=== PATIENT | female | born 1985 | race African-American/Black ===

== ENCOUNTER → 2016-08-31 | Outpatient (CLI) | payer OTHER | LOC: LAB 17:48 | PROVIDERS: ATTEND Nurse Practitioner Acute Care | DX: N89.8 Other specified noninflammatory disorders of vagina (principal) | CPT/HCPCS: 87210 ==

== ENCOUNTER 2016-12-29 10:30 | Day surgery (SDC) | payer OTHER ==
[2016-12-29 11:11] LABS: HEMATOCRIT 36.7 % (36.0-47.0); HEMOGLOBIN 12.6 g/dL (12.0-15.5); HGB HCT DIFFERENCE 1.1; MEAN CORPUSCULAR HEMOGLOBIN 27.3 pg (27.0-33.4); MEAN CORPUSCULAR HGB CONC 34.3 g/dL (32.0-36.0); MEAN CORPUSCULAR VOLUME 80 fl (80-97); RED BLOOD COUNT 4.62 10^6/uL (3.72-5.28); RED CELL DISTRIBUTION WIDTH 13.4 % (11.5-14.0); WHITE BLOOD COUNT 10.3 10^3/uL (4.0-10.5)
[2016-12-29 11:24] LABS: APPEARANCE,URINE SLIGHTLY-CLOUDY; BILIRUBIN,URINE NEGATIVE (NEGATIVE); GLUCOSE, URINE NEGATIVE (NEGATIVE); KETONES,URINE NEGATIVE (NEGATIVE); LEUKOCYTE ESTERASE,URINE NEGATIVE (NEGATIVE); NITRITE,URINE NEGATIVE (NEGATIVE); PROTEIN,URINE NEGATIVE (NEGATIVE); UROBILINOGEN,URINE NEGATIVE mg/dL (<2.0)
[2016-12-29] MEDS ORDERED: FAMOTIDINE INJ/PF 20 MG/2 ML SDV IV ONE ×2 (11:57→12:30)
[2016-12-29] MEDS ORDERED: METOCLOPRAMIDE HCL INJ/PF 10 MG/2 ML SDV ONE ×2 (11:57→19:11)
[2016-12-29] MEDS ORDERED: PROPOFOL INJ 200 MG/20 ML VIAL IV ONE (12:16)
[2016-12-29] MEDS ORDERED: MIDAZOLAM 2 MG/2 ML INJ ONE (12:16)
[2016-12-29] MEDS ORDERED: FENTANYL CITRATE INJ/PF 250 MCG/5 ML AMPULE ONE (12:16)
[2016-12-29] MEDS ORDERED: ACETAMINOPHEN 100 ML IV ONE (12:17)
[2016-12-29] MEDS ORDERED: METOCLOPRAMIDE HCL INJ/PF 10 MG/2 ML SDV IV ONE (12:30)
[2016-12-29] MEDS ORDERED: RINGERS SOLUTION,LACTATED 1,000 ML IV ONE (12:30)
[2016-12-29] MEDS ORDERED: VASOPRESSIN INJ 20 UNIT/1 ML VIAL ONE (12:39)
[2016-12-29] MEDS ORDERED: OXYTOCIN 10 UNIT/ML VIAL ONE (12:41)
[2016-12-29] MEDS ORDERED: DIPHENHYDRAMINE HCL 50 MG/ML VIAL IV PRN (12:52)
[2016-12-29] MEDS ORDERED: MORPHINE SULFATE 10 MG/ML INJ IV PRN ×2 (12:52→14:15)
[2016-12-29] MEDS ORDERED: FENTANYL CITRATE INJ/PF 100 MCG/2 ML AMPUL IV PRN ×3 (12:52)
[2016-12-29] MEDS ORDERED: OXYCODONE-ACETAMINOPHEN 5-325 MG TABLET PO PRN ×4 (12:52→14:15)
[2016-12-29] MEDS ORDERED: PROMETHAZINE HCL INJ 25 MG/1 ML VIAL IV PRN ×2 (12:52)
[2016-12-29] MEDS ORDERED: MEPERIDINE HCL/PF INJ 25 MG/1 ML DISP.SYRIN IV PRN (12:52)
[2016-12-29] MEDS ORDERED: IBUPROFEN 800 MG TABLET ONE (13:47)
[2016-12-29] MEDS ORDERED: RINGERS SOLUTION,LACTATED 1,000 ML IV PRN (14:03)
[2016-12-29] MEDS ORDERED: IBUPROFEN 800 MG TABLET PO PRN (14:15)
[2016-12-29 14:59] VITALS: BP 119/75
[2016-12-29] MEDS ORDERED: SUCCINYLCHOLINE CHLORIDE INJ 200 MG/10 ML VIAL ONE (19:11)
[2016-12-29] MEDS ORDERED: DEXAMETHASONE SOD PHOSPHATE INJ 4 MG/1 ML VIAL ONE (19:11)
[2016-12-29] MEDS ORDERED: ONDANSETRON HCL INJ/PF 4 MG/2 ML SDV ONE (19:11)
[2016-12-29] MEDS ORDERED: GLYCOPYRROLATE INJ 0.4 MG/2 ML VIAL ONE (19:11)
--- NOTE | 2017-01-25 17:24 | OPERATIVE REPORT E ---
Operative Report NAME: BUSHRA ANGUIANO : 1985 AGE: 31Y DATE OF SURGERY: 12/29/2016 ROOM: PREOPERATIVE DIAGNOSIS: 7-week missed . POSTOPERATIVE DIAGNOSIS: 7-week missed . OPERATION: Suction dilatation and curettage. SURGEON: Dain Beaulieu D.O. HIGH SCHOOL HOME ECONOMICS TEACHER: None. ANESTHESIA: General endotracheal anesthesia. COMPLICATIONS: None. ESTIMATED BLOOD LOSS: 25 mL. PATHOLOGY: Products of conception. FINDINGS: 1. Uterine sounds to 7 cm. 2. Moderate amount of products of conception. PROCEDURE: The patient was taken to the operating room where she was placed on the operating room table. Her general endotracheal anesthesia was then administered. Once this was done, she was placed in a dorsal lithotomy position with Dylan stirrups. She was then prepped and draped in normal sterile fashion. Open-sided speculum was then placed inside the patient's vagina. The cervix was easily visualized and grasped on the anterior lip with a single-tooth tenaculum. The uterus was then sounded to 7 cm. The cervix was then dilated to a 28-Maltese using a Hegar dilator. Using #7 curved curette, a suction dilatation was performed until the entire products of conception were removed. Following this, there was excellent hemostasis noted. Following this, the procedure was terminated. All instruments were removed from the patient's vagina. Sponge, lap, and needle counts were correct x2. The patient tolerated the procedure well. The patient was taken to the recovery room in stable condition. DICTATING PHYSICIAN: Dain Beaulieu DO [id number] PHY#: [id number] ID: [id number] JOB#: [id number] ACCT: [id number] cc:Dain Beaulieu D.O. >
== END 2016-12-29 13:40 | disposition home or self-care (01) ==
LOC: OROUT 10:30
PROVIDERS: ATTEND Obstetrics & Gynecology
PROC: 10D17ZZ Extraction of Products of Conception, Retained, Via Natural or Artificial Opening (ICD-10-PCS; principal; 2016-12-29 12:30)
DX: O02.1 Missed abortion (principal); Z79.1 Long term (current) use of non-steroidal anti-inflammatories (NSAID)
CPT/HCPCS: 36415; 85027; 81025; 81001; 88305 ×2; 59820; J2250; J1100; J3010; J2765; J2590; J0330; J2405; J3490; J2704; S0028; J0131; 1965

== ENCOUNTER 2017-06-07 09:45 | Day surgery (SDC) | payer OTHER ==
[~2017-06-07 09:45] MED LIST: PROPOFOL INJ 200 MG/20 ML VIAL IV ONE
[2017-06-07] MEDS ORDERED: PROPOFOL INJ 200 MG/20 ML VIAL IV ONE (10:28)
[2017-06-07 11:21] VITALS: BP 118/78
--- NOTE | 2017-06-07 12:23 | Operative Report ---
Operative Report DATE OF SURGERY: 06/07/17 Operative Report: The risks, benefits and alternatives of the procedure including risks of bleeding, patient requiring surgery are explained to the patient in detail and informed consent was obtained. The patient is brought back to the endoscopy suite timeout was called. Propofol medications administered. Patient was placed in the left, lateral decubital position. A rectal examination is done which did not reveal any masses, tears or fissures. An Olympus videoscope was inserted into the patient's rectum. The scope was then carefully advanced all the way to the cecum. The cecum was identified by the usual anatomical landmarks including the ileocecal valve as well as the appendiceal office. Photodocumentation is obtained. The scope was then sequentially pulled back via the various segments of the colon including the ascending colon, hepatic flexure, transverse colon, splenic flexure, descending colon and finding to the rectosigmoid portions of the colon. Retroflexion is done. Intubation of the terminal ileum was done. PREOPERATIVE DIAGNOSIS: Left lower quadrant pain, change in bowel habits, rule out Crohn's disease POSTOPERATIVE DIAGNOSIS: Mild terminal ileitis status post biopsy. Diverticulosis scattered throughout the colon. Rectal ulcer status post biopsy. Internal hemorrhoids OPERATION: Colonoscopy with biopsy SURGEON: INDIRA BETANCOURT ANESTHESIA: LMAC TISSUE REMOVED OR ALTERED: As noted above. COMPLICATIONS: None. ESTIMATED BLOOD LOSS: None. INTRAOPERATIVE FINDINGS: As described above. PROCEDURE: Patient tolerated the procedure well. No immediate postprocedure complications are noted. Patient discharged in good condition. Discharge date 06/07/2017. Discharge diet: Regular. Discharge activity: Regular. 2-3 week follow-up to discuss findings. We will await pathology. Patient is instructed to call the office or proceed to the emergency room should there be any further problems or questions.
== END 2017-06-07 11:06 | disposition home or self-care (01) ==
LOC: END 09:45
PROVIDERS: ATTEND Internal Medicine Gastroenterology
PROC: 0DBP8ZX Excision of Rectum, Via Natural or Artificial Opening Endoscopic, Diagnostic (ICD-10-PCS; 2017-06-07)
PROC: 0DBB8ZX Excision of Ileum, Via Natural or Artificial Opening Endoscopic, Diagnostic (ICD-10-PCS; principal; 2017-06-07 11:30)
DX: K92.1 Melena (principal); K52.9 Noninfective gastroenteritis and colitis, unspecified; K57.30 Diverticulosis of large intestine without perforation or abscess without bleeding; K64.8 Other hemorrhoids; K58.9 Irritable bowel syndrome, unspecified; K62.89 Other specified diseases of anus and rectum; Z87.891 Personal history of nicotine dependence; Z79.899 Other long term (current) drug therapy
CPT/HCPCS: 45380; 88305 ×2; J2704; 810

== ENCOUNTER 2018-04-03 22:34 | Outpatient (CLI) | payer OTHER ==
[2018-04-03 23:46] LABS: APPEARANCE,URINE CLEAR; BILIRUBIN,URINE NEGATIVE (NEGATIVE); COLOR,URINE STRAW; GLUCOSE, URINE NEGATIVE (NEGATIVE); KETONES,URINE NEGATIVE (NEGATIVE); LEUKOCYTE ESTERASE,URINE NEGATIVE (NEGATIVE); NITRITE,URINE NEGATIVE (NEGATIVE); PROTEIN,URINE NEGATIVE (NEGATIVE); URINE SPECIFIC GRAVITY 1.004; UROBILINOGEN,URINE NEGATIVE mg/dL (<2.0)
[2018-04-03 23:57] LABS: URINE AMPHETAMINES SCREEN NEGATIVE; URINE BARBITURATES SCREEN NEGATIVE; URINE BENZODIAZEPINES SCREEN NEGATIVE; URINE COCAINE SCREEN NEGATIVE; URINE MARIJUANA (THC) SCREEN NEGATIVE; URINE METHADONE SCREEN NEGATIVE; URINE PHENCYCLIDINE SCREEN NEGATIVE
--- NOTE | 2018-04-04 01:04 | RADIOLOGY REPORT (SQ) ---
EXAM DESCRIPTION: US LIMITED COMPLETED DATE/TME: 04/03/2018 23:21 CLINICAL HISTORY: 32 years Female, vaginal bleeding. hx labor Comparison: None. TECHNIQUE/LIMITATION: Targeted OB sonogram for requested parameters only. FINDINGS: Cardiac activity: 144-bpm. AMARA: 16.3-cm Placenta: Posterior. No evidence of abruption. No placenta previa. Presentation: Vertex Cervical length: 3.3-cm. Closed appearance. IMPRESSION: Targeted OB sonogram for requested parameters
== END 2018-04-04 01:39 | disposition home or self-care (01) ==
LOC: LC 22:34
PROVIDERS: ATTEND Obstetrics & Gynecology
PROC: 4A1HXCZ Monitoring of Products of Conception, Cardiac Rate, External Approach (ICD-10-PCS; principal; 2018-04-03)
DX: O47.02 False labor before 37 completed weeks of gestation, second trimester (principal); O46.92 Antepartum hemorrhage, unspecified, second trimester; Z3A.21 21 weeks gestation of pregnancy
CPT/HCPCS: 76815; 80307; 81001

== ENCOUNTER 2018-07-06 16:15 | Outpatient (CLI) | payer OTHER ==
[2018-07-06 17:00] LABS: APPEARANCE,URINE SLIGHTLY-CLOUDY; BILIRUBIN,URINE NEGATIVE (NEGATIVE); COLOR,URINE STRAW; GLUCOSE, URINE NEGATIVE (NEGATIVE); KETONES,URINE NEGATIVE (NEGATIVE); LEUKOCYTE ESTERASE,URINE TRACE (NEGATIVE); NITRITE,URINE NEGATIVE (NEGATIVE); PROTEIN,URINE NEGATIVE (NEGATIVE); URINE SPECIFIC GRAVITY 1.004; UROBILINOGEN,URINE NEGATIVE mg/dL (<2.0)
[2018-07-06 17:12] LABS: URINE AMPHETAMINES SCREEN NEGATIVE; URINE BARBITURATES SCREEN NEGATIVE; URINE BENZODIAZEPINES SCREEN NEGATIVE; URINE COCAINE SCREEN NEGATIVE; URINE MARIJUANA (THC) SCREEN NEGATIVE; URINE METHADONE SCREEN NEGATIVE; URINE PHENCYCLIDINE SCREEN NEGATIVE
== END 2018-07-06 17:42 | disposition home or self-care (01) ==
LOC: LC 16:15
PROVIDERS: ATTEND Obstetrics & Gynecology
PROC: 4A1HXCZ Monitoring of Products of Conception, Cardiac Rate, External Approach (ICD-10-PCS; principal; 2018-07-06)
DX: O26.893 Other specified pregnancy related conditions, third trimester (principal); M54.9 Dorsalgia, unspecified; Z3A.34 34 weeks gestation of pregnancy
CPT/HCPCS: 59025; 80307; 81001

== ENCOUNTER 2018-07-24 23:58 | Inpatient (IN) | payer OTHER ==
[2018-07-25] MEDS ORDERED: RINGERS SOLUTION,LACTATED 1,000 ML IV ONE (00:23)
[2018-07-25] MEDS ORDERED: RINGERS SOLUTION,LACTATED 1,000 ML IV PRN (00:23)
[2018-07-25] MEDS ORDERED: LIDOCAINE 1% INJ-PF (10 MG/ML) 30 ML SDV ONE (00:23)
[2018-07-25] MEDS ORDERED: OXYTOCIN/NORMAL SALINE 20 UNIT/1,000 ML RTUINJ ONE (00:23)
[2018-07-25] MEDS ORDERED: MISOPROSTOL 0.2 MG TABLET ONE (00:23)
[2018-07-25] MEDS ORDERED: EPHEDRINE SULFATE INJ 50 MG/1 ML AMPULE ONE (00:35)
[2018-07-25] MEDS ORDERED: FENTANYL CITRATE INJ/PF 100 MCG/2 ML AMPUL ONE (00:35)
[2018-07-25] MEDS ORDERED: FENTANYL/BUPIVACAINE/NS/PF 300 MCG/150 ML RTUINJ EPI ONE (00:35)
[2018-07-25] MEDS ORDERED: BUPIVACAINE HCL 0.5 % INJ/PF 30 ML SDV ONE (00:36)
[2018-07-25 00:53] LABS: ABSOLUTE BASOPHILS # (AUTO) 0.1 10^3/uL (0.0-0.2); ABSOLUTE EOSINOPHILS # (AUTO) 0.2 10^3/uL (0.0-0.6); ABSOLUTE LYMPHOCYTES (AUTO) 3.4 10^3/uL (0.5-4.7); ABSOLUTE MONOCYTES (AUTO) 0.8 10^3/uL (0.1-1.4); BASOPHILS % (AUTO) 0.5 % (0-2); EOSINOPHILS % (AUTO) 1.3 % (0-6); HEMATOCRIT 36.4 % (36.0-47.0); HEMOGLOBIN 12.6 g/dL (12.0-15.5); LYMPHOCYTES % (AUTO) 27.2 % (13-45); MEAN CORPUSCULAR HEMOGLOBIN 27.6 pg (27.0-33.4); MEAN CORPUSCULAR HGB CONC 34.6 g/dL (32.0-36.0); MEAN CORPUSCULAR VOLUME 80 fl (80-97); MONOCYTES % (AUTO) 6.2 % (3-13); PLATELET COUNT 179 10^3/uL (150-450); RED BLOOD COUNT 4.56 10^6/uL (3.72-5.28); RED CELL DISTRIBUTION WIDTH 13.9 % (11.5-14.0); SEGMENTED NEUTROPHILS % (AUTO) 64.8 % (42-78); TOTAL CELLS COUNTED % (AUTO) 100 %; WHITE BLOOD COUNT 12.4 10^3/uL (4.0-10.5)
[2018-07-25 01:01] LABS: APPEARANCE,URINE SLIGHTLY-CLOUDY; BILIRUBIN,URINE NEGATIVE (NEGATIVE); COLOR,URINE YELLOW; GLUCOSE, URINE NEGATIVE (NEGATIVE); KETONES,URINE TRACE mg/dL (NEGATIVE); LEUKOCYTE ESTERASE,URINE NEGATIVE (NEGATIVE); NITRITE,URINE NEGATIVE (NEGATIVE); PROTEIN,URINE NEGATIVE (NEGATIVE); URINE SPECIFIC GRAVITY 1.006; UROBILINOGEN,URINE NEGATIVE mg/dL (<2.0)
[2018-07-25 01:32] LABS: URINE AMPHETAMINES SCREEN NEGATIVE; URINE BARBITURATES SCREEN NEGATIVE; URINE BENZODIAZEPINES SCREEN NEGATIVE; URINE COCAINE SCREEN NEGATIVE; URINE MARIJUANA (THC) SCREEN NEGATIVE; URINE METHADONE SCREEN NEGATIVE; URINE PHENCYCLIDINE SCREEN NEGATIVE
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
[2018-07-25] MEDS ORDERED: ACETAMINOPHEN 325 MG TABLET PO PRN (02:13)
[2018-07-25] MEDS ORDERED: ZOLPIDEM TARTRATE 5 MG TABLET PO PRN (02:13)
[2018-07-25] MEDS ORDERED: DIPH/PERTUSS(ACELL)/TETANUS VAC/PF 0.5 ML SYR (>=10YO) IM PRN (02:13)
[2018-07-25] MEDS ORDERED: MISOPROSTOL 0.2 MG TABLET PR PRN (02:13)
[2018-07-25] MEDS ORDERED: ACETAMINOPHEN WITH CODEINE #3 TABLET PO PRN (02:13)
[2018-07-25] MEDS ORDERED: MEASLES,MUMPS&RUBELLA VACC/PF 0.5 ML VIAL SUBCUT PRN (02:13)
[2018-07-25] MEDS ORDERED: PROMETHAZINE HCL INJ 25 MG/1 ML VIAL IV PRN (02:13)
[2018-07-25] MEDS ORDERED: DIBUCAINE 1% OINTMENT 28 GM TP PRN (02:13)
[2018-07-25] MEDS ORDERED: NA PHOS,M-B/NA PHOS,DI-BA (ADULT) 133 ML ENEMA PR PRN (02:13)
[2018-07-25] MEDS ORDERED: PROMETHAZINE HCL 25 MG SUPP.RECT PR PRN (02:13)
[2018-07-25] MEDS ORDERED: GLYCERIN/WITCH HAZEL LEAF 1 EACH MED..PAD TP PRN (02:13)
[2018-07-25] MEDS ORDERED: MAGNESIUM HYDROXIDE SUSP 30 ML UDCUP PO PRN (02:13)
[2018-07-25] MEDS ORDERED: DIPHENHYDRAMINE HCL 25 MG CAPSULE PO PRN (02:13)
[2018-07-25] MEDS ORDERED: BENZOCAINE/MENTHOL AEROSOL SPRAY 56 ML TOP PRN (02:13)
[2018-07-25] MEDS ORDERED: PSEUDOEPHEDRINE HCL 30 MG TABLET PO PRN (02:13)
[2018-07-25] MEDS ORDERED: PROMETHAZINE HCL 25 MG TABLET PO PRN (02:13)
[2018-07-25] MEDS ORDERED: OXYTOCIN/NORMAL SALINE 20 UNIT/1,000 ML RTUINJ IV PRN (02:13)
--- NOTE | 2018-07-25 04:00 | Delivery Summary ---
Del Sum A-C Datetime Report Generated by CPN: 07/25/2018 04:00 DELIVERY PERSONNEL DELIVERY PERSONNEL: [id number] Delivery Doctor:: Mara Lima MD Labor and Delivery Nurse:: Genia Mejía RNbrewery worker Nurse:: Fallon Cameron RN Nursery Nurse:: Chelsey Cunha RN Director Diversity/COMMERCIAL LOAN SPECIALIST: Shabanataty Swan, COAT CHECK ATTENDANT MATERNAL INFORMATION Delivery Anesthesia: Epidural Medications After Delivery: Pitocin Drip 20 Units/1000ml NSS; Cytotec 1000mcg Per Rectum/Vagina Maternal Complications: None Provider Comments: VFI delivered in BORIS presentation. No nuchal cord. Shoulders and body delivered without difficulty. Cord doubly clamped and cut and to maternal abdomen. Placenta delivered intact spontaneously. FF at U then mild uterine atony resolved with uterine manual evacuation and uterine massage and cytotec 1000mcg per rectum. Due to particulate meconium peds notified for delivery. FF at U. Mother and baby stable upon provider leaving the room. LABOR SUMMARY EDC: 08/12/2018 00:00 No. Babies in Womb: 1 Attempted: No Labor Anesthesia: Epidural LABOR INFORMATION Reason for Induction: Not Applicable Onset of Labor: 07/25/2018 00:18 Complete Dilatation: 07/25/2018 01:48 Oxytocin: N/A Group B Beta Strep: negative Steroids Given: None Reason Steroids Not Administered: Not Applicable MEMBRANES Membranes Rupture Method: Spontaneous Rupture of Membranes: 07/25/2018 01:40 Length of Rupture (hr): 0.20 Amniotic Fluid Color: Moderate Meconium Amniotic Fluid Amount: Moderate Amniotic Fluid Odor: Normal STAGES OF LABOR Stage 1 hr: 1 Stage 1 min: 30 Stage 2 hr: 0 Stage 2 min: 4 Stage 3 hr: 0 Stage 3 min: 4 Total Time in Labor hr: 1 Total Time in Labor min: 38 VAGINAL DELIVERY Episiotomy: None Laceration #1: None Laceration Extension #1: N/A Laceration Repair: Not Applicable Sponge Count Correct: Yes Sharps Count Correct: Yes CSECTION DELIVERY Primary Indication: N/A Secondary Indication: N/A CSection Incidence: N/A Labor: N/A Elective: N/A CSection Incision: N/A BABY A INFORMATION Delivery Date/Time: 07/25/2018 01:52 Method of Delivery: Vaginal Born in Route : No : N/A Forceps: N/A Vacuum Extraction: N/A Shoulder Dystocia : No PRESENTATION/POSITION BABY A Presentation: Cephalic Cephalic Presentation: Vertex Vertex Position: Right Occipital Anterior Breech Presentation: N/A PLACENTA INFORMATION BABY A Placenta Delivery Time : 07/25/2018 01:56 Placenta Method of Delivery: Spontaneous Placenta Status: Delivered SCORES BABY A Heart Rate 1 min: >100 bpm Resp Effort 1 min: Slow, Irregular Reflex Irritability 1 min: Cough or Sneeze or Pulls Away Muscle Tone 1 min: Active Motion Color 1 min: Body Sena, Extremities Blue Resuscitation Effort 1 min: Tactile Stimulation SCORE 1 MIN: 8 Heart Rate 5 min: >100 bpm Resp Effort 5 min: Good Cry Reflex Irritability 5 min: Cough or Sneeze or Pulls Away Muscle Tone 5 min: Active Motion Color 5 min: Body Sena, Extremities Blue Resuscitation Effort 5 min: Tactile Stimulation SCORE 5 MIN: 9 INFANT INFORMATION BABY A Gestational Age at Delivery: 37.3 Gestational Status: Early Term- 37- 38.6 Weeks Outcome : Liveborn Condition : Stable Sex: Female IDENTIFICATION BABY A Verification Date/Time: 07/25/2018 02:15 ID Band Number: [id number] Mother's Name Verified: Yes Infant RN Verifying Infant: Abbi Cameron RN Additional Verifying Personnel: Sree Peña RN CORD INFORMATION BABY A No. Cord Vessels: 3 Nuchal Cord : N/A Cord Blood Taken: Yes-For Storage (Mom's Blood type +) Infant Suction: Mouth; Nose ASSESSMENT BABY A Infant Complications: Meconium Physical Findings at Delivery: Within Normal Limits Respirations: Appears Normal Skin to Skin: Yes Skin to Skin Time (min): 60 Magnetic Resonance Imaging Coordinator/ALS Called : No Infant Care By: Virginia Cunha RN Transferred To: Remains with Mother BABY B INFORMATION : N/A SIGNATURES Signature: with User ID: [email or web address]
[2018-07-25] MEDS: IBUPROFEN 800 MG TABLET PO SCH ×3 (05:20→22:03)
[2018-07-25] MEDS: ACETAMINOPHEN WITH CODEINE #3 TABLET PO PRN ×3 (06:06→18:02)
[2018-07-25] MEDS: SENNOSIDES/DOCUSATE 8.6-50 MG 1 EACH TABLET PO SCH (09:24)
[2018-07-25] MEDS: FERROUS SULFATE 325 MG TABLET PO SCH ×2 (09:24→18:02)
[2018-07-25] MEDS: FAMOTIDINE 20 MG TABLET PO SCH ×2 (09:25→22:03)
[2018-07-25] MEDS: DOCUSATE SODIUM 100 MG CAPSULE PO SCH ×2 (09:25→22:04)
[2018-07-25] MEDS: PRENATAL VITAMIN W DHA CAPSULE PO SCH (09:25)
[2018-07-26 08:19] LABS: HEMATOCRIT 31.9 % (36.0-47.0); HEMOGLOBIN 11.2 g/dL (12.0-15.5); MEAN CORPUSCULAR HEMOGLOBIN 28.2 pg (27.0-33.4); MEAN CORPUSCULAR HGB CONC 35.1 g/dL (32.0-36.0); MEAN CORPUSCULAR VOLUME 80 fl (80-97); PLATELET COUNT 168 10^3/uL (150-450); RED BLOOD COUNT 3.97 10^6/uL (3.72-5.28); RED CELL DISTRIBUTION WIDTH 14.1 % (11.5-14.0); WHITE BLOOD COUNT 12.6 10^3/uL (4.0-10.5)
[2018-07-26] MEDS: PRENATAL VITAMIN W DHA CAPSULE PO SCH (10:22)
[2018-07-26] MEDS: FERROUS SULFATE 325 MG TABLET PO SCH ×2 (10:23→17:20)
[2018-07-26] MEDS: DOCUSATE SODIUM 100 MG CAPSULE PO SCH ×2 (10:23→20:25)
[2018-07-26] MEDS: SENNOSIDES/DOCUSATE 8.6-50 MG 1 EACH TABLET PO SCH (10:23)
[2018-07-26] MEDS: FAMOTIDINE 20 MG TABLET PO SCH ×2 (10:23→21:22)
[2018-07-26] MEDS: IBUPROFEN 800 MG TABLET PO SCH ×3 (10:25→21:22)
--- NOTE | 2018-07-26 11:18 | PDOC PROGRESS REPORT ---
Subjective-OB Progress Note for:: 07/26/18 Subjective: 33yo G8 now P4 s/p ppd 1. Pt. ambulating, voiding and without difficulty. Reports pain well controlled with medication. Denies concerns at this time. Bonding well with baby. Physical Exam (OB) Vital Signs: Temp Pulse Resp BP Pulse Ox 98.7 F 66 16 112/65 99 07/26/18 08:07 07/26/18 08:07 07/26/18 08:07 07/26/18 08:07 07/26/18 08:07 Intake & Output 07/25/18 07/26/18 07/27/18 06:59 06:59 06:59 Intake Total 400 Balance 400 Weight 96.3 kg - General General Appearance: Appears well In distress: None - PIH/Pre-Eclampsia DTR's: 2 + Clonus: Negative Headache: Absent Epigastric Pain: No Visual Changes: No - Episiotomy/Laceration Site Condition: N/A - Lochia Lochia Amount: Small 10-25 ml Lochia Color: Rubra/Red - Abdomen Description: Soft Hernia Present: No Fundal Description: Firm, Midline Fundal Height: u/u - u/2 - Respiratory Respiratory Status: No respiratory distress - Extremities Upper extremity: Normal inspection Lower extremities: Normal inspection - Neurological Cognition: Normal Orientation: AAOx4 - Psychological Associated symptoms: Normal affect, Normal mood Objective-Diagnostic Laboratory: 07/26/18 08:09 07/26/18 08:09 WBC 12.6 H RBC 3.97 Hgb 11.2 L Hct 31.9 L MCV 80 MCH 28.2 MCHC 35.1 RDW 14.1 H Plt Count 168 Assessment and Plan(PN) - Assessment and Plan (1) Precipitous delivery, delivered (current hospitalization) Is this a current diagnosis for this admission?: Yes Plan: delivered (2) Vaginal delivery Is this a current diagnosis for this admission?: Yes Plan: Routine pp care. (3) Active labor at term Is this a current diagnosis for this admission?: Yes Plan: delivered (4) Meconium in amniotic fluid Is this a current diagnosis for this admission?: Yes Plan: delivered, peds present at delivery - Time Spent with Patient Time with patient: Less than 15 minutes Medications reviewed and adjusted accordingly: Yes - Disposition Anticipated Discharge: Home Within: within 24 hours
[2018-07-26] MEDS: ACETAMINOPHEN WITH CODEINE #3 TABLET PO PRN ×2 (17:20→21:22)
[2018-07-27] MEDS: IBUPROFEN 800 MG TABLET PO SCH ×2 (05:18→13:54)
[2018-07-27] MEDS: ACETAMINOPHEN WITH CODEINE #3 TABLET PO PRN ×2 (05:19→09:38)
[2018-07-27 09:11] VITALS: BP 122/72
[2018-07-27] MEDS: FERROUS SULFATE 325 MG TABLET PO SCH (09:34)
[2018-07-27] MEDS: FAMOTIDINE 20 MG TABLET PO SCH (09:34)
[2018-07-27] MEDS: PRENATAL VITAMIN W DHA CAPSULE PO SCH (09:34)
--- NOTE | 2018-07-27 10:22 | PDOC PROGRESS REPORT ---
Subjective-OB Progress Note for:: 07/27/18 Subjective: Ready to go home. Physical Exam (OB) Vital Signs: Temp Pulse Resp BP Pulse Ox 97.8 F 76 17 122/72 98 07/27/18 08:07 07/27/18 08:07 07/27/18 08:07 07/27/18 08:07 07/27/18 08:07 Intake & Output 07/26/18 07/27/18 07/28/18 06:59 06:59 06:59 Intake Total 400 Balance 400 - PIH/Pre-Eclampsia DTR's: 2 + Clonus: Negative Headache: Absent Epigastric Pain: No Visual Changes: No - Lochia Lochia Amount: Scant < 10 ml Lochia Color: Rubra/Red - Abdomen Description: Tender, Soft, Round Hernia Present: No Bowel Sounds: Normoactive Flatus Presence: Present Stool: Yes Fundal Description: Firm, Midline Fundal Height: u/u - u/2 Objective-Diagnostic Laboratory: 07/26/18 08:09 Assessment and Plan(PN) - Time Spent with Patient Medications reviewed and adjusted accordingly: Yes - Disposition Anticipated Discharge: Home
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
[2018-07-27] MEDS: SENNOSIDES/DOCUSATE 8.6-50 MG 1 EACH TABLET PO SCH (13:15)
[2018-07-27] MEDS: DOCUSATE SODIUM 100 MG CAPSULE PO SCH (13:15)
== END 2018-07-27 17:42 | disposition home or self-care (01) | DRG 806 ==
LOC: LC 23:58 → LR 07-25 00:25 → 2S 07-25 04:12
PROVIDERS: ADMIT Student in an Organized Health Care Education/Training Program; ATTEND Student in an Organized Health Care Education/Training Program
PROC: 10E0XZZ Delivery of Products of Conception, External Approach (ICD-10-PCS; principal; 2018-07-25)
DX: O62.3 Precipitate labor (principal); K50.90 Crohn's disease, unspecified, without complications; Z37.0 Single live birth; O99.02 Anemia complicating childbirth; D57.3 Sickle-cell trait; O99.62 Diseases of the digestive system complicating childbirth; K92.89 Other specified diseases of the digestive system; O62.2 Other uterine inertia; O77.0 Labor and delivery complicated by meconium in amniotic fluid; O26.23 Pregnancy care for patient with recurrent pregnancy loss, third trimester; Z62.810 Personal history of physical and sexual abuse in childhood; Z3A.37 37 weeks gestation of pregnancy
CPT/HCPCS: 36415; 80307; 81005; 85025; 85027; 86592; 86850; 86900; 86901; 90471; 90686; 94760; G0008; J2590; J3010; J3490

== ENCOUNTER → 2019-10-06 | Outpatient (CLI) | payer OTHER | LOC: LAB 17:08 | PROVIDERS: ATTEND Internal Medicine Gastroenterology | DX: K50.919 Crohn's disease, unspecified, with unspecified complications (principal) | CPT/HCPCS: 36415; 85652; 86140 ==

== ENCOUNTER → 2020-08-23 | Outpatient (CLI) | payer OTHER ==
[2020-08-23 12:47] LABS: ABSOLUTE BASOPHILS # (AUTO) 0.1 10^3/uL (0.0-0.2); ABSOLUTE EOSINOPHILS # (AUTO) 0.2 10^3/uL (0.0-0.6); ABSOLUTE LYMPHOCYTES (AUTO) 3.4 10^3/uL (0.5-4.7); ABSOLUTE MONOCYTES (AUTO) 0.7 10^3/uL (0.1-1.4); ABSOLUTE NEUT (AUTO) 6.5 10^3/uL (1.7-8.2); BASOPHILS % (AUTO) 0.8 % (0-2); EOSINOPHILS % (AUTO) 2.1 % (0-6); HEMATOCRIT 39.3 % (36.0-47.0); HEMOGLOBIN 13.4 g/dL (12.0-15.5); LYMPHOCYTES % (AUTO) 31.5 % (13-45); MEAN CORPUSCULAR HEMOGLOBIN 27.6 pg (27.0-33.4); MEAN CORPUSCULAR HGB CONC 34.2 g/dL (32.0-36.0); MEAN CORPUSCULAR VOLUME 81 fl (80-97); MONOCYTES % (AUTO) 6.3 % (3-13); PLATELET COUNT 237 10^3/uL (150-450); RED BLOOD COUNT 4.87 10^6/uL (3.72-5.28); RED CELL DISTRIBUTION WIDTH 13.7 % (11.5-14.0); SEGMENTED NEUTROPHILS % (AUTO) 59.3 % (42-78); TOTAL CELLS COUNTED % (AUTO) 100 %; WHITE BLOOD COUNT 10.9 10^3/uL (4.0-10.5)
[2020-08-23 13:32] LABS: ERYTHROCYTE SEDIMENTATION RATE 18 mm/hr (0-20)
== END ==
LOC: LAB 12:01
PROVIDERS: ATTEND Internal Medicine Gastroenterology
DX: K50.919 Crohn's disease, unspecified, with unspecified complications (principal)
CPT/HCPCS: 36415; 85025; 85652; 86140

== ENCOUNTER → 2020-08-26 | Outpatient (CLI) | payer OTHER ==
--- NOTE | 2020-08-26 16:04 | RADIOLOGY REPORT (SQ) ---
EXAM DESCRIPTION: CT ABD/PELVIS WITH IV ONLY IMAGES COMPLETED DATE/TIME: 08/26/2020 3:23 pm REASON FOR STUDY: CROHN'S DISEASE K50.919 CROHN'S DISEASE, UNSPECIFIED, WITH UNSPECIFIED COMPL COMPARISON: None. TECHNIQUE: CT scan of the abdomen and pelvis performed using helical scanning technique with dynamic intravenous contrast injection. No oral contrast. Images reviewed with lung, soft tissue, and bone windows. Reconstructed coronal and sagittal MPR images reviewed. Delayed images for evaluation of the urinary system also acquired. All images stored on PACS. All CT scanners at this facility use dose modulation, iterative reconstruction, and/or weight based d osing when appropriate to reduce radiation dose to as low as reasonably achievable (ALARA). [facility]: Dose Right [facility]: CareDose [facility]: Dose Right [facility]: Teradose 4D [facility]: Swarm Mobile CONTRAST TYPE AND DOSE: contrast/concentration: Isovue 350.00 mmol/ml; Total Contrast Delivered: 100 .0 ml; Total Saline Delivered: 37.0 ml RENAL FUNCTION: None required. The patient is less than 50 years old. RADIATION DOSE: CT Rad equipment meets quality standard of care and radiation dose reduction techniq ues were employed. CTDIvol: 11.8 - 11.9 mGy. DLP: 1298 mGy-cm.. LIMITATIONS: None. FINDINGS: LOWER CHEST: No significant findings. No nodules or infiltrates. LIVER: Normal size. No masses. No dilated ducts. SPLEEN: Normal size. No focal lesions. PANCREAS: No masses. No significant calcifications. No adjacent inflammation or peripancreatic fluid collections. Pancreatic duct not dilated. GALLBLADDER: No identified stones by CT criteria. No inflammatory changes to suggest cholecystitis. ADRENAL GLANDS: No significant masses or asymmetry. RIGHT KIDNEY AND URETER: No solid masses. No significant calcifications. No hydronephrosis or hyd roureter. LEFT KIDNEY AND URETER: No solid masses. No significant calcifications. No hydronephrosis or hydr oureter. AORTA AND VESSELS: No aneurysm. No dissection. Renal arteries, SMA, celiac without stenosis. RETROPERITONEUM: No retroperitoneal adenopathy, hemorrhage or masses. BOWEL AND PERITONEAL CAVITY: No significant bowel wall thickening. No obvious bowel mass. APPENDIX: Not identified. PELVIS: Possible nabothian cysts. Urinary bladder is normal. No abnormal pelvic mass. ABDOMINAL WALL: No masses. No hernias. BONES: No significant or acute findings. OTHER: No other significant finding. IMPRESSION: No acute findings in the abdomen or pelvis. No evidence of active Crohn's disease. Pos sible nabothian cysts. TECHNICAL DOCUMENTATION: JOB ID: [id number] Quality ID # [id number]: Final reports with documentation of one or more dose reduction techniques (e.g., Au tomated exposure control, adjustment of the mA and/or kV according to patient size, use of iterative reconstruction technique) 2010 [employer]- All Rights Reserved Reading location - IP/workstation name: [email or web address]
== END ==
LOC: RAD 14:55
PROVIDERS: ATTEND Internal Medicine Gastroenterology
DX: K50.919 Crohn's disease, unspecified, with unspecified complications (principal)
CPT/HCPCS: 74177

== ENCOUNTER 2020-09-09 09:25 | Day surgery (SDC) | payer OTHER ==
[2020-09-09 11:46] VITALS: BP 134/100
--- NOTE | 2020-09-09 12:09 | Operative Report ---
Operative Report DATE OF SURGERY: 09/09/20 Operative Report: The risk, benefits and alternatives of the procedure including the risk of bleeding, perforation requiring surgery have been explained to the patient in detail and informed consent has been obtained. The patient is placed in the left, lateral decubital position. Timeout was called. Propofol medication is administered. Rectal examination is done which did not reveal any masses, tears or fissures. An Olympus for scope was introduced into the patient's rectum. Scope was then carefully advanced all the way to the cecum. The cecum was identified by the usual anatomical landmarks including the ileocecal valve as well as the appendiceal office. Photodocumentation is obtained. The scope was then sequentially pulled back via the various segments of the colon including the ascending colon, hepatic flexure, transverse colon, splenic flexure, descend ing colon and finally into the rectosigmoid portions of the colon. Retroflexion maneuver is performed. PREOPERATIVE DIAGNOSIS: History of Crohn's disease with rectal bleeding POSTOPERATIVE DIAGNOSIS: Random biopsies in the terminal ileum. Rectal ulcers status post biopsy likely the cause of the patient's bleeding,. diverticulosis. Internal hemorrhoids OPERATION: Colonoscopy with biopsy SURGEON: INDIRA BETANCOURT ANESTHESIA: LMAC TISSUE REMOVED OR ALTERED: As noted above. COMPLICATIONS: None. ESTIMATED BLOOD LOSS: None. INTRAOPERATIVE FINDINGS: As noted above. PROCEDURE: Patient tolerated the procedure well. No immediate postprocedure complications are noted. Patient is discharged in good condition. Discharge date 09/09/2019 Discharge diet: Regular. Discharge activity: Regular. 2 to 3-week follow-up to discuss findings. Patient is instructed call the office or proceed to the emergency room should there be any further problems or questions. Wait on the pathology.
== END 2020-09-09 11:38 | disposition home or self-care (01) ==
LOC: OROUT 09:25
PROVIDERS: ATTEND Internal Medicine Gastroenterology
DX: K50.00 Crohn's disease of small intestine without complications (principal); K63.5 Polyp of colon; K64.8 Other hemorrhoids; K57.30 Diverticulosis of large intestine without perforation or abscess without bleeding; K62.6 Ulcer of anus and rectum; F32.9 Major depressive disorder, single episode, unspecified; Z79.899 Other long term (current) drug therapy
CPT/HCPCS: 45380; 88305 ×2; 00811; J2704; 811